=== PATIENT | male | born 1945 | race Caucasian/White ===

== ENCOUNTER 2017-05-31 10:46 | Day surgery (SDC) | payer MEDICARE ==
[2017-05-28 09:24] VITALS: BMI 26.0
[~2017-05-31 10:46] MED LIST: LACTATED RINGERS 1,000 ML IV SCH; LIDOCAINE 1% 20 ML VIAL (10MG/ML) FOR IV START INTRADERMA PRN
[2017-05-31 11:13] VITALS: TEMP 97
[2017-05-31] MEDS ORDERED: PROPOFOL 10 MG/ML 20 ML VIAL IV ONE (12:20)
[2017-05-31] MEDS ORDERED: LIDOCAINE 1% INJ 10MG/ML (20 ML MDV) ONE (12:20)
[2017-05-31 12:50] VITALS: RESP 18
--- NOTE | 2017-05-31 12:52 | P.PCN ---
Date of Procedure: 05/31/17 Procedure(s) Performed: Procedure: Total colonoscopy and polypectomy. Preoperative diagnosis: Screening for neoplasia. Postoperative diagnosis: 1. Diverticulosis with no evidence of acute diverticulitis or strictures. 2. Small hepatic flexure polyp snared but no large polyps or cancer. Preparation: HalfLytely prep. Sedation: Was provided by anesthesia. Brief clinical history: The patient is a 71-year-old male who is scheduled for this evaluation for screening for neoplasia. He had a prior exam 10-12 years ago. He has no abdominal complaints, bleeding or anemia. Procedure: With the patient on his left lateral decubitus position and after informed consent and adequate sedation, the perianal area was inspected and it did not show any fissures or fistulas. There were no masses felt on digital rectal examination. The Olympus CFQ 160L video colonoscope was then inserted in the rectum in the usual fashion and advanced to the cecum. There were several diverticular orifices seen scattered along the length of the bowel wall with no evidence of acute diverticulitis or strictures. A small polyp was seen around the hepatic flexure and that was snared and retrieved by suction, but there were no large polyps or cancer. I retroflexed the endoscope in the rectum before the endoscope was withdrawn. The patient tolerated the procedure well. Plan: The patient was reassured. Discussed dietary measures. He will follow up with you as planned and I recommended repeat exam in 5 years.
[2017-05-31 13:25] VITALS: BP 120/78; PULSE 57
== END 2017-05-31 13:36 | disposition home or self-care (01) ==
LOC: ORWHC2ENDO 10:46
DX: Z12.11 Encounter for screening for malignant neoplasm of colon (principal); K63.5 Polyp of colon; K57.30 Diverticulosis of large intestine without perforation or abscess without bleeding; I10 Essential (primary) hypertension; E78.5 Hyperlipidemia, unspecified; I25.10 Atherosclerotic heart disease of native coronary artery without angina pectoris; N40.0 Benign prostatic hyperplasia without lower urinary tract symptoms; C61 Malignant neoplasm of prostate; Z79.82 Long term (current) use of aspirin; Z79.899 Other long term (current) drug therapy; Z95.1 Presence of aortocoronary bypass graft; Z95.0 Presence of cardiac pacemaker; Z95.2 Presence of prosthetic heart valve
CPT/HCPCS: 88305; 45385; J2001; J2704

== ENCOUNTER → 2017-12-21 | Outpatient (CLI) | payer MEDICARE ==
[2017-12-21 17:37] LABS: HCT 46.5 % (39.0-53.0); HGB 15.1 gm/dL (13.0-17.5); MCH 30.4 pg (25.0-35.0); MCHC 32.5 g/dL (31.0-37.0); MCV 93.3 fL (80.0-100.0); Mean Platelet Volume 7.6; Platelet Count 140 k/uL (150-450); RBC 4.98 m/uL (4.30-5.90); WBC 6.4 k/uL (3.8-10.6)
[2017-12-21 18:07] LABS: Potassium 4.3 mmol/L (3.5-5.1)
== END | disposition home or self-care (01) ==
LOC: LABPAT 17:08
PROVIDERS: ATTEND Internal Medicine Interventional Cardiology
DX: Z01.812 Encounter for preprocedural laboratory examination (principal); I25.810 Atherosclerosis of coronary artery bypass graft(s) without angina pectoris; I48.1 Persistent atrial fibrillation
CPT/HCPCS: 36415; 80051; 82565; 84520; 85027

== ENCOUNTER 2017-12-30 06:01 | Day surgery (SDC) | payer MEDICARE ==
[2017-12-24 10:29] VITALS: BMI 27.1
[2017-12-30] MEDS ORDERED: SODIUM CHLORIDE 0.9% 1,000 ML IV SCH ×2 (06:10→08:15)
[2017-12-30] MEDS ORDERED: LACTATED RINGERS 1,000 ML IV SCH (06:10)
[2017-12-30] MEDS ORDERED: SODIUM CHLORIDE 0.9% 500 ML IV ONE (07:04)
[2017-12-30] MEDS ORDERED: PROPOFOL 10 MG/ML 20 ML VIAL IV ONE (07:27)
[2017-12-30] MEDS ORDERED: LIDOCAINE 1% INJ 10MG/ML (20 ML MDV) ONE (07:27)
[2017-12-30] MEDS ORDERED: MIDAZOLAM 2 MG/2 ML VIAL ONE (07:27)
[2017-12-30] MEDS: BENZOCAINE SPRAY 1 CAN MUCOUS MEM ONE ×2 (07:43→07:54)
[2017-12-30] MEDS ORDERED: DOCUSATE 100 MG CAP PO PRN (08:14)
--- NOTE | 2017-12-30 08:36 | CE ---
CARDIAC ELECTROPHYSIOLOGY REPORT CARDIOVERSION PROCEDURE NOTE. INDICATION: Atrial fibrillation. PROCEDURE: After explaining the procedure to the patient as well as risks and the complications, his blood pressure, heart rate, O2 saturation were monitored. After obtaining sedated state and performing transesophageal echocardiogram, a synchronized biphasic cardioversion using 200 joules was performed with druze of normal sinus rhythm. There was no immediate complication. ESTEFANY / MADDYN: [id number] /
[2017-12-30 08:39] VITALS: TEMP 97
[2017-12-30 08:40] VITALS: RESP 16
[2017-12-30] MEDS ORDERED: APIXABAN 5 MG TAB PO ONE (08:45)
--- NOTE | 2017-12-30 08:51 | ECHOT ---
TRANSESOPHAGEAL ECHOCARDIOGRAM INDICATION: Evaluation of left atrial appendage. PROCEDURE: After explaining the procedure to the patient, its risks and the complications, his blood pressure, heart rate, O2 saturation was monitored. The throat was sprayed with Cetacaine. He received sedation per anesthesia department. The probe was introduced in the esophagus without difficulties. Images were obtained. Following that, the probe was removed. There was no immediate complication. FINDINGS: Left atrial size is dilated. Spontaneous contrast was noted. Left atrial appendage is normal. Left ventricular size is normal. The ejection fraction 45% to 50%. The aortic valve is a bioprosthetic valve with normal appearance. The mitral valve revealed mitral annuloplasty. The tricuspid valve is normal. Pacemaker wire was noted in the right atrium and right ventricle. Descending thoracic aorta appears to be normal. Contrast bubble study revealed no evidence of shunting across the interatrial septum. Doppler pulse wave and color Doppler obtained and revealed a mild mitral and aortic regurgitation as well as mild tricuspid regurgitation. There was no shunting by color Doppler study. CONCLUSION: 1. Dilated left atrium with spontaneous contrast and normal appearance of left atrial appendage. 2. Normal left ventricular size with mild impairment of left ventricular systolic function. 3. Bioprosthetic aortic valve with mild aortic regurgitation. 4. Mitral annuloplasty with mild mitral regurgitation. 5. Mild tricuspid regurgitation. 6. A wire was noted in the right ventricle. 7. Normal appearance of the descending thoracic aorta. MMODL / IJN: [id number] /
[2017-12-30] MEDS ORDERED: CARVEDILOL 6.25 MG TAB PO SCH (09:00)
[2017-12-30] MEDS ORDERED: CHOLECALCIFEROL 1,000 UNIT TAB PO SCH (09:00)
[2017-12-30] MEDS ORDERED: NON-FORMULARY DRUG (Losartan Potassium [Cozaar] 100 MG) PO SCH (09:00)
[2017-12-30] MEDS ORDERED: FINASTERIDE 5 MG TAB PO SCH (09:00)
[2017-12-30] MEDS ORDERED: NON-FORMULARY DRUG (Omeprazole [Omeprazole] 20 MG) PO SCH (09:00)
[2017-12-30] MEDS ORDERED: APIXABAN 5 MG TAB PO SCH (09:00)
[2017-12-30 10:08] VITALS: BP 113/69; PULSE 64
[2017-12-30] MEDS ORDERED: TERAZOSIN HCL 10 MG PO SCH (21:00)
[2017-12-30] MEDS ORDERED: ATORVASTATIN 40 MG TAB PO SCH (21:00)
== END 2017-12-30 09:45 | disposition home or self-care (01) ==
LOC: CATHCVL 06:01
PROVIDERS: ATTEND Internal Medicine Interventional Cardiology
DX: I48.1 Persistent atrial fibrillation (principal); I08.3 Combined rheumatic disorders of mitral, aortic and tricuspid valves; R94.31 Abnormal electrocardiogram [ECG] [EKG]; E78.2 Mixed hyperlipidemia; I42.9 Cardiomyopathy, unspecified; I10 Essential (primary) hypertension; Z95.2 Presence of prosthetic heart valve; Z95.1 Presence of aortocoronary bypass graft; Z95.0 Presence of cardiac pacemaker; Z79.01 Long term (current) use of anticoagulants; Z79.899 Other long term (current) drug therapy
CPT/HCPCS: 93312; 93320; 93325; 92960; J2250; J2001; J2704; 74176

== ENCOUNTER → 2018-08-05 | Outpatient (CLI) | payer MEDICARE ==
--- NOTE | 2018-08-05 21:06 | US ---
EXAMINATION TYPE: US carotid duplex BILAT DATE OF EXAM: 08/05/2018 COMPARISON: NONE CLINICAL HISTORY: R55 Pre Syncope. EXAM MEASUREMENTS: RIGHT: Peak Systolic Velocity (PSV) cm/sec ----- Right CCA: 66.9 ----- Right ICA: 84.4 ----- Right ECA: 75.6 ICA/CCA ratio: 1.3 RIGHT: End Diastole cm/sec ----- Right CCA: 18.9 ----- Right ICA: 26.0 ----- Right ECA: 11.7 LEFT: Peak Systolic Velocity (PSV) cm/sec ----- Left CCA: 69.5 ----- Left ICA: 81.7 ----- Left ECA: 72.1 ICA/CCA ratio: 1.2 LEFT: End Diastole cm/sec ----- Left CCA: 17.1 ----- Left ICA: 36.3 ----- Left ECA: 11.0 VERTEBRALS (direction of flow): Right Vertebral: Antegrade Left Vertebral: Antegrade Rhythm: Normal No significant stenosis seen. Mild to moderate bilateral plaque. No elevated velocities. IMPRESSION: 1. Mild to moderate plaque bilaterally with no significant hemodynamic stenosis. Criteria for Assigning % of Stenosis / Diameter reduction (Estimation based on the indirect measurements of the internal carotid artery velocities (ICA PSV). 1. Normal (no stenosis)=ICA PSV < 125 cm/s: ratio < 2.0: ICA EDV<40 cm/s. 2. Less than 50% stenosis=ICA PSV < 125 cm/s: ratio < 2.0: ICA EDV<40 cm/s. 3. 50 to 69% stenosis=ICA PSV of 125 to 230 cm/s: ration 2.0 ? 4.0: ICA EDV 40-100 cm/s. 4. Greater than 70% stenosis to near occlusion= ICA PSV > 230 cm/s: ratio > 4.0: ICA EDV > 100 cm/s. 5. Near occlusion= ICA PSV velocities may be low or undetectable: variable ratio and ICA EDV. 6. Total occlusion=unable to detect flow.
--- NOTE | 2018-08-06 17:33 | CT ---
EXAMINATION TYPE: CT brain wo con DATE OF EXAM: 08/05/2018 COMPARISON: None HISTORY: Dizziness x [address] DLP: 1245 mGycm Automated exposure control for dose reduction was used. FINDINGS: There is hypodensity in the left temporal lobe consistent with old infarct and encephalomalacia. Ther e is left temporal craniotomy defect. There is no mass effect nor midline shift. There is no sign of intracranial hemorrhage. There is cerebral cortical atrophy. 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 PREVIOUS SURGERY. NO ACUTE INTRACRANIAL ABNORMALITY.
== END | disposition home or self-care (01) ==
LOC: RADCTMAIN 15:24
PROVIDERS: ATTEND Psychiatry & Neurology Neurology
DX: I65.23 Occlusion and stenosis of bilateral carotid arteries (principal); R55 Syncope and collapse; Z98.890 Other specified postprocedural states
CPT/HCPCS: 70450; 93880

== ENCOUNTER 2018-10-06 09:26 | Day surgery (SDC) | payer MEDICARE ==
[2018-10-03 11:06] VITALS: BMI 27.1
[2018-10-06] MEDS ORDERED: SODIUM CHLORIDE 0.9% 1,000 ML IV SCH (09:53)
[2018-10-06 10:18] VITALS: RESP 16; TEMP 98.1
[2018-10-06 12:32] VITALS: BP 136/74; PULSE 72
--- NOTE | 2018-10-06 13:19 | P.PCN ---
Preoperative Diagnosis: Diagnosis Loss of consciousness Twelve-lead ECG shows atrial fibrillation with ventricular pacing, heart rate 51 beats a minute Tilt table test per protocol Baseline blood pressure 170-186 mm of mercury systolic and diastolics in the 80s Patient was tilted upright at an angle of 70 per protocol there was a gradual progressive decline in blood pressure without any significant change in heart rate. The lowest blood pressure recorded was 136/74 mmHg When he was laid supine once again his blood pressure increased back 260/77 mmHg Impression Twelve-lead ECG shows atrial fibrillation with ventricular paced beats Orthostatic hypotension syndrome with a gradual decline in blood pressure with upright position Supine hypertension
== END 2018-10-06 12:44 | disposition home or self-care (01) ==
LOC: CATHEP 09:26
PROVIDERS: ATTEND Internal Medicine Clinical Cardiac Electrophysiology
DX: I95.1 Orthostatic hypotension (principal); I48.91 Unspecified atrial fibrillation; I10 Essential (primary) hypertension
CPT/HCPCS: 93660

== ENCOUNTER → 2018-10-28 | Outpatient (CLI) | payer MEDICARE ==
--- NOTE | 2018-10-28 18:34 | CT ---
EXAMINATION TYPE: CT brain w con DATE OF EXAM: 10/28/2018 COMPARISON: 08/05/2018 HISTORY: dizziness X [address] DLP: 1144.7 mGycm Automated exposure control for dose reduction was used. CONTRAST: CT scan of the head is performed with IV Contrast, patient injected with 50cc mL of Isovue 370. FINDINGS: There is a mild generalized degenerative change. Area of encephalomalacia involving the left temporal lobe compatible with remote ischemia. No acute hemorrhage. No enhancing mass. Postsurgical change compatible with previous craniotomy. Area s of low attenuation within the white matter are nonspecific but most typical remote ischemic punctat e area of low attenuation left basal ganglia compatible with remote lacunar infarct. IMPRESSION: Degenerative and remote ischemic change with no acute process.
--- NOTE | 2018-10-28 18:55 | CT ---
EXAMINATION TYPE: CT angio head neck DATE OF EXAM: 10/28/2018 HISTORY: dizziness X 4 years COMPARISON: CT DLP: 387.3 mGycm. Automated Exposure Control for Dose Reduction was Utilized. TECHNIQUE: CTA scan of the neck is performed with IV Contrast, patient injected with 50cc mL of Isov ue 370, axial images are obtained, coronal and sagittal reformatted images are reviewed. Three-D joseph nstructed images are created on an independent workstation and reviewed. FINDINGS: Right carotid artery: Right carotid artery is patent with mild atherosclerotic changes invo lving the carotid bulb and proximal right ICA. No significant stenosis. Left carotid artery: There is mild atherosclerotic change involving the left carotid bulb and proxima l left ICA. No significant stenosis. There is atherosclerotic change of the aorta. Origin of the great vessels appear to be patent. There is mild atherosclerotic change involving proximal subclavian artery and origin of the left common car otid artery. Visualized portions of the subclavian arteries are patent. Biapical pleural thickening noted. Punctate 2 mm apical nodules involving the right upper lobe and in traparenchymal 2 mm nodules involving the left upper lobe are too small to characterize. Hypertrophic and degenerative changes of vertebral column. Mild atherosclerotic change involving the origin of the left external carotid artery. Sternotomy wires. Cardiac device is noted. The vertebrobasilar system appears patent. Visualized portions of the carotid system including the anterior cerebral middle cerebral arteries ar e patent. There is encephalomalacia involving the left temporal lobe suggestive of previous remote is chemia. No sizable aneurysm or vascular malformation. IMPRESSION: 1. No significant hemodynamic stenosis involving the carotid bifurcations. 2. No evidence of sizable aneurysm. 3. Remote infarct involving the left temporal lobe. 4. Biapical sub-5 mm pulmonary nodules too small to characterize could be followed up in 6 months to confirm stability.
== END | disposition home or self-care (01) ==
LOC: RADCTMAIN 15:17
PROVIDERS: ATTEND Otolaryngology
DX: I63.9 Cerebral infarction, unspecified (principal); G31.9 Degenerative disease of nervous system, unspecified
CPT/HCPCS: 82565; 84520; 70496; 70460; 70498; 36415; Q9967

== ENCOUNTER 2018-12-01 05:52 | Day surgery (SDC) | payer MEDICARE ==
[2018-11-25 08:47] VITALS: BMI 27.1
[2018-12-01] MEDS ORDERED: SODIUM CHLORIDE 0.9% 1,000 ML IV SCH ×2 (06:16→07:45)
[2018-12-01 06:32] VITALS: TEMP 97.9
[2018-12-01] MEDS ORDERED: SODIUM CHLORIDE 0.9% 1,000 ML IV ONE (06:32)
[2018-12-01] MEDS ORDERED: LIDOCAINE 1% INJ 10MG/ML (20 ML MDV) ONE (07:21)
[2018-12-01] MEDS ORDERED: PROPOFOL 10 MG/ML 20 ML VIAL IV ONE (07:21)
--- NOTE | 2018-12-01 08:42 | ECHOT ---
TRANSESOPHAGEAL ECHOCARDIOGRAM INDICATION: Evaluation left atrial appendage. PROCEDURE: After explaining the procedure to the patient, its' risks and complications after obtaining sedated state by the anesthesia department, the probe was introduced into the esophagus without difficulties. Images were obtained. Following that, the probe was removed. There was no immediate complication. FINDINGS: The left atrial size is dilated. Spontaneous contrast was noted. The left atrial appendage revealed an echogenic area suggestive of thrombus. The left ventricular size and systolic function normal. The aortic valve is a bioprosthetic valve with normal appearance. Mitral valve revealed mitral valve bioprosthetic with normal movement of the leaflets. The tricuspid valve is normal. Descending thoracic aorta appears normal. Contrast bubble study revealed no shunting across the interatrial septum. No pericardial effusion was noted. Doppler pulse wave were obtained, revealed mild mitral and aortic regurgitation. There was mild to moderate tricuspid regurgitation with mild pulmonary hypertension. CONCLUSION: 1. Normal left ventricular size and systolic function. 2. Dilated left atrium with spontaneous contrast and suggestion of left atrial appendage thrombus. 3. Bioprosthetic aortic valve with mild aortic regurgitation. 4. Bioprosthetic mitral valve with mild mitral regurgitation. 5. Mild to moderate tricuspid regurgitation with mild pulmonary hypertension. 6. No shunting across the interatrial septum. MMODL / IJN: [id number] /
[2018-12-01] MEDS ORDERED: FINASTERIDE 5 MG TAB PO SCH (09:00)
[2018-12-01] MEDS ORDERED: NON FORMULARY DRUG (Losartan Potassium [Cozaar] 100 MG) PO SCH (09:00)
[2018-12-01] MEDS ORDERED: CARVEDILOL 6.25 MG TAB PO SCH (09:00)
[2018-12-01] MEDS ORDERED: APIXABAN 5 MG TAB PO SCH (09:00)
[2018-12-01] MEDS ORDERED: AMIODARONE 200 MG TAB PO SCH (09:00)
[2018-12-01 09:15] VITALS: PULSE 62
[2018-12-01 09:16] VITALS: BP 131/70; RESP 20
[2018-12-01] MEDS ORDERED: TERAZOSIN HCL 10 MG PO SCH (21:00)
[2018-12-01] MEDS ORDERED: ATORVASTATIN 40 MG TAB PO SCH (21:00)
--- NOTE | 2018-12-28 13:01 | CDI ---
Outpatient Documentation Clarification Form Date: 12/28/18 CDS/Sales And Distribution Clerk Name: Maritza Hughes Phone: If any questions, call Marisol Carlton Bathhouse Attendant at [phone] Patient Name: Robby Hodgson Admit Date: 12/01/18 Discharge Date: 12/01/18 ATTENTION: The [facility] Coding Staff appreciate your assistance in clarifying documentation. Please respond to the clarification below the line at the bottom and electronically sign. The [facility] Coding staff will review the response and follow-up if needed. Please note: Queries are made part of the Legal Health Record. If you have any questions, please contact the Bathhouse Attendant. Dear Dr. Bynum, It appears that your MINAL dictation does not include documentation that the following part of the study was done. Doppler Echocardiography Color Flow velocity mapping. If it was done, please document that it was done in addendum to your MINAL report or document details/results that indicate that it was done on this form below the line. Thank you for your kind consideration. [facility]
--- NOTE | 2018-12-30 10:16 | CDI ---
Outpatient Documentation Clarification Form Date: 12/30/18 CDS/Shop Clerk Name: Maritza Hughes Phone: If any questions, call Marisol Carlton Gas Producer at [phone] Patient Name: Robby Hodgson Admit Date: 12/01/18 Discharge Date: 12/01/18 ATTENTION: The [facility] Coding Staff appreciate your assistance in clarifying documentation. Please respond to the clarification below the line at the bottom and electronically sign. The [facility] Coding staff will review the response and follow-up if needed. Please note: Queries are made part of the Legal Health Record. If you have any questions, please contact the Gas Producer. Dear Dr. Bynum, It appears that your MINAL dictation does not include documentation that the following part of the study was done. Doppler Echocardiography Color Flow velocity mapping. If it was done, please document that it was done in addendum to your MINAL report or document details/results that indicate that it was done on this form below the line. Thank you for your kind consideration _ MTDD
== END 2018-12-01 09:20 | disposition home or self-care (01) ==
LOC: CATHCVL 05:52
PROVIDERS: ATTEND Internal Medicine Interventional Cardiology
DX: I48.1 Persistent atrial fibrillation (principal); I27.20 Pulmonary hypertension, unspecified; I08.3 Combined rheumatic disorders of mitral, aortic and tricuspid valves; Z95.2 Presence of prosthetic heart valve; E78.2 Mixed hyperlipidemia; I13.10 Hypertensive heart and chronic kidney disease without heart failure, with stage 1 through stage 4 chronic kidney disease, or unspecified chronic kidney disease; N18.9 Chronic kidney disease, unspecified; Z95.1 Presence of aortocoronary bypass graft; Z95.0 Presence of cardiac pacemaker; Z79.01 Long term (current) use of anticoagulants; Z79.899 Other long term (current) drug therapy
CPT/HCPCS: 93312; 93320; J2001; J2704; 92960; 93325

== ENCOUNTER → 2019-01-06 | Day surgery (SDC) | payer MEDICARE ==
[2019-01-02 15:18] VITALS: BMI 27.6
[~2019-01-06] MED LIST changes: +AMIODARONE 200 MG TAB PO SCH; +APIXABAN 5 MG TAB PO SCH; +ATORVASTATIN 40 MG TAB PO SCH; +BENZOCAINE SPRAY 1 CAN TOPICAL ONE; +CARVEDILOL 6.25 MG TAB PO SCH; +FINASTERIDE 5 MG TAB PO SCH; -LIDOCAINE 1% 20 ML VIAL (10MG/ML) FOR IV START INTRADERMA PRN; +NON FORMULARY DRUG (Losartan Potassium [Cozaar] 100 MG) PO SCH; +PROPOFOL 10 MG/ML 20 ML VIAL IV ONE; +SODIUM CHLORIDE 0.9% 1,000 ML IV SCH; +TERAZOSIN HCL 10 MG PO SCH
[2019-01-06 06:50] VITALS: TEMP 98
[2019-01-06 07:57] VITALS: RESP 16
--- NOTE | 2019-01-06 08:03 | ECHOT ---
TRANSESOPHAGEAL ECHOCARDIOGRAM TRANSESOPHAGEAL ECHOCARDIOGRAM: INDICATION: Evaluation of left atrial appendage. PROCEDURE: After explaining the procedure to the patient, its risks and the complications, his blood pressure, heart rate, O2 saturation was monitored. The throat was sprayed with Cetacaine, he received sedation per Anesthesia Department. The probe was introduced in the esophagus without difficulty, images were obtained. Following that, the probe was removed. There was no immediate complication. FINDINGS: Left atrial size is moderately dilated. There is evidence of spontaneous contrast. Left atrial appendage is normal. Left ventricular size and systolic function normal. The aortic valve is a bioprosthetic aortic valve with normal appearance. The mitral valve is a bioprosthetic mitral valve with normal appearance. Descending thoracic aorta appears to be normal. The tricuspid valve is normal. No pericardial effusion was noted. Contrast bubble study revealed no evidence of shunting across the interatrial septum. Doppler pulse wave and color Doppler obtained and revealed mild mitral and aortic regurgitation with mild to moderate tricuspid regurgitation and mild pulmonary hypertension. There was no shunting by color Doppler study. CONCLUSION: 1. Dilated left atrium with normal appearance of left atrial appendage with spontaneous contrast. 2. Normal left ventricular size systolic function. 3. Bioprosthetic aortic valve with mild aortic regurgitation. 4. Bioprosthetic mitral valve with mild mitral regurgitation. 5. Mild to moderate tricuspid regurgitation. 6. Normal appearance of the descending thoracic aorta. 7. No shunting across the interatrial septum. MMODL / IJN: [id number] /
--- NOTE | 2019-01-06 08:09 | CE ---
CARDIAC ELECTROPHYSIOLOGY REPORT CARDIOVERSION PROCEDURE NOTE: INDICATION: Atrial fibrillation. PROCEDURE: After explaining the procedure to the patient, its risks and the complications, after obtaining sedated state per Anesthesia Department and performing transesophageal echocardiogram, a synchronized biphasic cardioversion using 200 joules was performed with jewish of normal sinus rhythm. There was no immediate complication. ESTEFANY / VARUN: [id number] /
[2019-01-06 09:32] VITALS: BP 156/77; PULSE 60
== END | disposition home or self-care (01) ==
LOC: CATHCVL 06:26
PROVIDERS: ATTEND Internal Medicine Interventional Cardiology
DX: I08.3 Combined rheumatic disorders of mitral, aortic and tricuspid valves (principal); I48.1 Persistent atrial fibrillation; I10 Essential (primary) hypertension; I42.9 Cardiomyopathy, unspecified; E78.2 Mixed hyperlipidemia; C61 Malignant neoplasm of prostate; K21.9 Gastro-esophageal reflux disease without esophagitis; Z95.1 Presence of aortocoronary bypass graft; Z79.01 Long term (current) use of anticoagulants; Z79.02 Long term (current) use of antithrombotics/antiplatelets; Z79.899 Other long term (current) drug therapy; Z95.0 Presence of cardiac pacemaker; Z95.2 Presence of prosthetic heart valve; Z87.891 Personal history of nicotine dependence
CPT/HCPCS: 93312; 93320; 93325; 92960; J2704

== ENCOUNTER → 2019-09-05 | Outpatient (CLI) | payer MEDICARE ==
--- NOTE | 2019-09-05 14:40 | CT ---
EXAMINATION TYPE: CT abdomen pelvis w con DATE OF EXAM: 09/05/2019 COMPARISON: 12/30/2017 HISTORY: Gross hematuria CT DLP: 1162.00 mGycm Automated exposure control for dose reduction was used. CONTRAST: CT scan of the abdomen pelvis is performed with IV Contrast, patient injected with 100 ml mL of Isovu e 300. FINDINGS- LUNG BASES-the heart is enlarged. Motion artifact limits assessment of the lung bases. LIVER/GB-tiny hypodensities measuring less than 5 mm in the liver too small to characterize. No galls tones.. PANCREAS- No gross abnormality is seen. SPLEEN- No gross abnormality is seen. ADRENALS-8 mm left adrenal nodules too small to characterize but similar in appearance to the prior C T scan 2018 therefore likely in the basis of an adenoma.. KIDNEYS/BLADDER-left kidney is markedly atrophic. There are 2 lower pole calcifications the larger on e measuring 1 cm. Extrarenal pelvis noted. There is a nonobstructing mid to lower pole 2 mm right yakelin al calculus. No suspicious renal mass. Tiny sub-5 mm hypodensities in the right kidney too small to c haracterize. 2. Stranding is nonspecific could be correlated with urinary analysis. BOWEL-small hiatal hernia noted. Bowel gas pattern nonspecific. Mild thickening of the wall the gastr ic antrum is nonspecific. Changes of diverticulosis noted. Portions of the sigmoid colon are decompre ssed and limited in assessment.. LYMPH NODES- No greater than 1cm abdominal or pelvic lymph nodes areappreciated. OSSEOUS STRUCTURES- No significant abnormality is seen. OTHER- prostate gland is markedly enlarged. Atherosclerotic change aorta which appears to be of norm al caliber. Cardiac lead incidentally noted. Bladder is homogeneous in attenuation IMPRESSION- 1. Marked atrophy of the left kidney with nonobstructing bilateral renal calculi as discussed above. There is faint perinephric stranding bilaterally which can be associated with infectious etiology cor relate with urine analysis. 2. Prostatic hypertrophy
== END | disposition home or self-care (01) ==
LOC: RADCTMAIN 11:40
PROVIDERS: ATTEND Family Medicine
DX: N26.1 Atrophy of kidney (terminal) (principal); N20.0 Calculus of kidney; N40.0 Benign prostatic hyperplasia without lower urinary tract symptoms
CPT/HCPCS: 82565; 84520; 74177; 36415; Q9967

== ENCOUNTER 2019-11-06 06:20 | Day surgery (SDC) | payer MEDICARE ==
[~2019-11-06 06:20] MED LIST changes: -AMIODARONE 200 MG TAB PO SCH; -APIXABAN 5 MG TAB PO SCH; -ATORVASTATIN 40 MG TAB PO SCH; -BENZOCAINE SPRAY 1 CAN TOPICAL ONE; -CARVEDILOL 6.25 MG TAB PO SCH; +DEXAMETHASONE SOD PHOSPHATE 10 MG/ML 1 ML VIAL IV ONE; -FINASTERIDE 5 MG TAB PO SCH; +HYDROmorphone 0.5 MG/0.5 ML SYRINGE IVP PRN; -LACTATED RINGERS 1,000 ML IV SCH; +LIDOCAINE 1% (10MG/ML) FOR IV START INTRADERMA PRN; +MIDAZOLAM 2 MG/2 ML VIAL IV PRN; -NON FORMULARY DRUG (Losartan Potassium [Cozaar] 100 MG) PO SCH; -PROPOFOL 10 MG/ML 20 ML VIAL IV ONE; -SODIUM CHLORIDE 0.9% 1,000 ML IV SCH; -TERAZOSIN HCL 10 MG PO SCH
[2019-11-06 07:07] LABS: Basophils % (A) 1 %; Eosinophils # (A) 0.3 k/uL (0-0.7); Eosinophils % (A) 7 %; HCT 44.6 % (39.0-53.0); HGB 14.5 gm/dL (13.0-17.5); Lymphocytes # (A) 0.7 k/uL (1.0-4.8); Lymphocytes % (A) 15 %; MCH 29.7 pg (25.0-35.0); MCHC 32.6 g/dL (31.0-37.0); MCV 91.1 fL (80.0-100.0); Mean Platelet Volume 8.7; Monocytes # (A) 0.4 k/uL (0-1.0); Monocytes % (A) 8 %; Neutrophils # (A) 3.2 k/uL (1.3-7.7); Neutrophils % (A) 68 %; Platelet Count 134 k/uL (150-450); RBC 4.89 m/uL (4.30-5.90); RDW 14.3 % (11.5-15.5); WBC 4.6 k/uL (3.8-10.6)
[2019-11-06 07:15] LABS: Calcium 9.8 mg/dL (8.4-10.2); Potassium 4.1 mmol/L (3.5-5.1)
[2019-11-06] MEDS ORDERED: LIDOCAINE 1% INJ 10MG/ML (20 ML MDV) ONE ×2 (07:53→07:54)
[2019-11-06] MEDS ORDERED: HEPARIN SODIUM,PORCINE 10,000 UNIT/ML 1 ML VIAL ONE (07:54)
[2019-11-06] MEDS ORDERED: PROPOFOL 10 MG/ML 20 ML VIAL IV ONE (07:54)
[2019-11-06] MEDS ORDERED: PHENYLEPHRINE-0.9% NACL SYG 1 MG/10 ML SYRINGE ONE (07:54)
[2019-11-06] MEDS ORDERED: MIDAZOLAM 2 MG/2 ML VIAL ONE (07:54)
[2019-11-06] MEDS ORDERED: SUCCINYLCHOLINE CHLORIDE VIAL 200 MG/10 ML VIAL IV ONE (07:54)
[2019-11-06] MEDS: SODIUM CHLORIDE 0.9% 1,000 ML IV SCH (07:54)
[2019-11-06] MEDS ORDERED: FUROSEMIDE 10 MG/ML 2 ML VIAL ONE (07:54)
[2019-11-06] MEDS ORDERED: PROTAMINE SULFATE 10 MG/ML 5 ML VIAL IV ONE (07:54)
[2019-11-06] MEDS ORDERED: fentaNYL (PF) 50 MCG/ML 2 ML AMP ONE (07:54)
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
[2019-11-06] MEDS ORDERED: IOPAMIDOL-370 50ML BTL INJ ONE (08:25)
[2019-11-06] MEDS ORDERED: LIDOCAINE 1%-EPI 1:100,000 20 ML VIAL SQ ONE (09:26)
[2019-11-06] MEDS ORDERED: HEPARIN SODIUM (1,000 UNIT/ML) 1,000 UNIT in SODIUM CHLORIDE 0.9% 1,000 ML IRRIGATION ONE (09:56)
[2019-11-06] MEDS ORDERED: HEPARIN SOD,PORK IN 0.45% NACL 25,000 UNIT in 0.45% NACL 1 250ML.BAG IV ONE (09:56)
[2019-11-06] MEDS ORDERED: IOPAMIDOL-370 100ML BTL INJ ONE (12:41)
--- NOTE | 2019-11-06 13:04 | P.PCN ---
Preoperative Diagnosis: Diagnosis Atrial fibrillation, symptomatic, refractory to therapy, persistent Failed amiodarone and electrical cardioversions 100% RV paced Result No left atrial appendage mass seen on intracardiac echo, within the left atrial appendage stump Successful pulmonary vein isolation of all veins using cryo-ablation Complete entrance block in all 4 veins confirmed No evidence for phrenic nerve injury Patient converted to atrial flutter following PVI Successful atrial flutter ablation Esophageal deflection YES Electrical cardioversion with a synchronized shock across the chest NO LV function appeared normal on intracardiac echo Procedure details Patient was brought to the EP lab in a fasting state. Written informed consent was obtained prior to the procedure. Procedure performed under general anesthesia Medtronic device was interrogated and reprogrammed to VVI 50 beats a minute At the end of the procedure lead impedances were stable and the device was reprogrammed to DDDR 50 to 1:30 bpm After initial muscle relaxant use, muscle relaxants were not given thereafter in order to assess phrenic nerve during procedure. Patient prepped and draped as per protocol Full cryo-set up with standard preparation of the cryoablation tools done. Femoral Venous access obtained on the right and left groins Venous and arterial Sheaths placed. Diagnostic catheters for the high right atrium, phrenic nerve stimulation and pacing, His bundle, RV and coronary sinus placed Intracardiac echo catheter placed. Long sheath placed in the right atrium Left and right transseptal catheterization performed under intracardiac echo guidance. Intravenous heparin with aCT above 300 Later, catheter positioning and balloon positioning in the left atrium, under intracardiac echo guidance Diagnostic EP study with Coronary sinus pacing and recording Baseline measurements: Sinus cycle length 04/27/2003 milliseconds, paced QRS 163 ms Ventricular paced rhythm Atrial pacing performed from the right atrium and the coronary sinus Transseptal catheterization performed RA pressure 15/8/12 LA pressure 34/12/20, prominent V wave Transseptal catheterization performed with standard sheath. The cryoablation sheath was then placed with an over the wire exchange without any acute complications. All 4 pulmonary veins were isolated in the following sequence: Left superior followed by left inferior followed by right superior followed by right inferior The cryo-ablation balloon was placed at the os of each vein 1.5 mL of IV dye was injected to confirm an occluded vein Goal during cryoablation was to achieve complete occlusion of the pulmonary vein, achieve -30 degrees C at 30 seconds and achieve -40 degrees C at 60 seconds and a time to effect of less than 60-90 seconds, . If not the balloon was repositioned to obtain this result After completion of Cryoblation with durations from 180-240 seconds, entrance block was confirmed with the Attain circular catheter in a roving fashion around the antrum of the pulmonary veins Phrenic nerve pacing was performed from the SVC, right innominate vein area and diaphragm voltage was monitored. Diaphragmatic contractions were also monitored manually for strength of contraction. Parameter goals for each cryo freeze Complete occlusion of the appropriate vein -30 degrees C by 30 seconds -40 degrees C by 60 seconds Minimum between minus 40-55 degrees C Thaw time greater than 10 seconds Balloon visualized by intracardiac echo The esophagus was intubated. Esophageal Temperature monitoring with a CIRCA catheter formed. Esophageal deflection for hypothermia of the esophagus below 30 degrees C Left superior pulmonary vein Complete isolation, entrance block Left inferior pulmonary vein Complete isolation, entrance block Right superior pulmonary vein, during phrenic nerve pacing Complete isolation, entrance block Right inferior pulmonary vein, during phrenic nerve pacing Complete isolation, entrance block At the end of the procedure the Achieve catheter was once again used to check for entrance block Phrenic nerve stimulation was performed to confirm diaphragmatic stimulation the end of the procedure Cine fluoroscopy was performed at the very end of the procedure to confirm movement of both diaphragms with inspiration and expiration After completion of the pulmonary vein isolation patient was in an atrial tachycardia 3-D activation mapping of the left atrium was performed. The tachycardia focus was not in the left atrium The twelve-lead ECG was consistent with atrial flutter 3-D anatomical mapping of the cavo tricuspid right atrium was performed. RF ablation was applied. The tachycardia was terminated to sinus rhythm/sinus bradycardia with complete heart block/ventricular paced rhythm Baseline was interrogated Bidirectional block was proven with differential pacing Widely split potentials were noted across the line At the end of the procedure the patient was extubated Heparin was reversed Venous sheaths were removed and hemostasis assured Procedures performed (PVI and A. fib ablation ) Diagnostic EP study CS pacing and recording Left and right transseptal catheterization 3D mapping Intracardiac echocardiography Pulmonary vein isolation with transseptal and comprehensive EPS, [id number] atrial flutter ablation, ablation of discrete arrhythmia focus, [id number] Periprocedural pacemaker interrogation and reprogramming x2
[2019-11-06] MEDS ORDERED: ACETAMINOPHEN TAB 325 MG TAB PO PRN (13:12)
[2019-11-06] MEDS ORDERED: HYDROcodone/APAP 5-325MG 1 EACH TAB PO PRN (13:12)
--- NOTE | 2019-11-06 13:12 | P.PCN ---
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 This would be quite challenging as the tortuosity of this collateral would not allow torque to be transmitted along the lead being implanted and therefore lead maneuvering within the heart would be extremely difficult. However intracardiac echo showed LV function was close to normal Patient underwent successful termination of atrial fibrillation with VVI He converted to atrial flutter thereafter which is also successfully ablated Sinus rhythm was obtained following ablation Suggest Reduce amiodarone to 100 mg by mouth daily
[2019-11-06] MEDS ORDERED: ACETAMINOPHEN IV (For NPO) 1,000 MG in EMPTY BAG 1 BAG IVPB ONE (14:00)
--- NOTE | 2019-11-06 14:15 | P.PCN ---
Preoperative Diagnosis: Following A. fib ablation the pacemaker was interrogated This is a Medtronic adapter Longevity around 3-1/2 years Pacing impedance in the atrium for 20 ohms Pacing impedance in the ventricle function for ohms Atrial threshold 1 warted 0.4 ms, P waves 5.6 mV line ventricular threshold 1.2 V at 0.4 ms, complete heart block Pacemaker function within normal limits post A. fib ablation
[2019-11-06] MEDS: LACTATED RINGERS 1,000 ML IV SCH (15:02)
--- NOTE | 2019-11-06 16:56 | P.PRLE ---
RE: Robby Hodgson Dear Marlee Mr. Robby Cuenca has very symptomatic atrial fibrillation, persistent and he underwent pulmonary vein isolation/A. fib ablation at this resulted in ter mination of atrial fibrillation and appearance of typical atrial flutter. Subsequently atrial flutter was also successfully ablated to sinus rhythm He does of complete heart block and has a dual-chamber pacemaker There is also question of an upgrade to a biventricular pacing system but intracardiac echo showed fairly preserved LV systolic function. In addition he has an occluded left subclavian vein on the left upper extremity venography. At this time I would simply continue anticoagulation and his current medications and 03 he maintains sinus rhythm on a lower dose of amiodarone of 100 mg by mouth daily. Thank you for entrusting me with the care of the patient Warm regards Sincerely Enio Deluca
[2019-11-06] MEDS: CARVEDILOL 6.25 MG TAB PO SCH (17:35)
[2019-11-06] MEDS: APIXABAN 5 MG TAB PO SCH (20:43)
[2019-11-06] MEDS ORDERED: DOXAZOSIN 4 MG TAB PO SCH (21:00)
[2019-11-06] MEDS ORDERED: ATORVASTATIN 40 MG TAB PO SCH (21:00)
[2019-11-07] MEDS: LACTATED RINGERS 1,000 ML IV SCH (00:45)
[2019-11-07] MEDS: CARVEDILOL 6.25 MG TAB PO SCH (06:50)
[2019-11-07] MEDS ORDERED: PANTOPRAZOLE 40 MG TABLET PO SCH (07:30)
[2019-11-07] MEDS: APIXABAN 5 MG TAB PO SCH (07:56)
[2019-11-07] MEDS: SODIUM CHLORIDE 0.9% 1,000 ML IV SCH (08:25)
[2019-11-07] MEDS ORDERED: LOSARTAN 50 MG TAB PO SCH (09:00)
[2019-11-07] MEDS ORDERED: FINASTERIDE 5 MG TAB PO SCH (09:00)
[2019-11-07 09:37] VITALS: BP 156/84; PULSE 61; RESP 18; TEMP 98
--- NOTE | 2019-11-07 15:36 | P.DS ---
Providers Attending physician: Enio Deluca Primary care physician: [facility] Course: Patient is doing well. His sore throat. No chest discomfort. His ablating in the hallways and his room with no tenderness in the groins no swelling or significant pain No pleuritic chest discomfort He is afebrile 90 have that pulses of the 60s and 70s, blood pressure 156/80. His mercury head and neck examination is normal No JVD Normal heart sounds normal S1 normal S2 Breath sounds are clear rhonchi no crackles Extremities are warm Cause of healed well Impression Persistent symptomatic atrial fibrillation Pulmonary vein dependent atrial fibrillation Patient went into atrial flutter following successful cryoablation of pulmonary veins Source of his A. fib is in and around the right superior pulmonary vein He underwent successful ablation of atrial flutter with bidirectional block Plan Continue current medications directed anticoagulation Follow-up with Dr. Bynum week He may go home today Plan - Discharge Summary Discharge Rx Participant: Yes New Discharge Prescriptions: New Amiodarone [Cordarone] 100 mg PO DAILY #90 tab Discontinued Amiodarone [Cordarone] 200 mg PO DAILY No Action Atorvastatin [Lipitor] 40 mg PO HS Finasteride [Proscar] 5 mg PO DAILY Carvedilol [Coreg] 6.25 mg PO BID Terazosin HCl 10 mg PO HS Losartan Potassium [Cozaar] 100 mg PO DAILY Apixaban [Eliquis] 5 mg PO BID Omeprazole [PriLOSEC] 20 mg PO [facility] Discharge Medication List Atorvastatin [Lipitor] 40 mg PO HS 05/28/17 [History] Carvedilol [Coreg] 6.25 mg PO BID 05/28/17 [History] Finasteride [Proscar] 5 mg PO DAILY 05/28/17 [History] Apixaban [Eliquis] 5 mg PO BID 12/24/17 [History] Losartan Potassium [Cozaar] 100 mg PO DAILY 12/24/17 [History] Terazosin HCl 10 mg PO HS 12/24/17 [History] Omeprazole [PriLOSEC] 20 mg PO AC-BRKT 11/02/19 [History] Amiodarone [Cordarone] 100 mg PO DAILY #90 tab 11/06/19 [Rx] Follow up Appointment(s)/Referral(s): Ralph Bynum MD [STAFF PHYSICIAN] - 11/14/19 8:30 am (Follow up in the office with Dr. Bynum as scheduled for you) Patient Instructions/Handouts: Electrophysiology Study (DC) Activity/Diet/Wound Care/Special Instructions: Post EP study - Ablation instructions 1. Keep access sites dry for 2 days. 2. No heavy lifting or straining for 2 days. 3. Avoid bending the hips repeatedly for 2 days. 4. You may go up and down stairs slowly Call if the following is noted 1. Bleeding, increasing swelling or pain at the access sites. 2. Increasing chest discomfort, especially upon taking a deep breath. 3. Increasing shortness of breath, at rest or with exertion. 4. Undue cough / phlegm 5. Difficulty or pain while swallowing. 6. Pain or change in color in the extremities. 7. Fever, chills, rigors. 8. Increasing headache or neurologic symptoms. 9. Dizziness, fainting, palpitations Discharge Disposition: HOME SELF-CARE
== END 2019-11-07 11:26 | disposition home or self-care (01) ==
LOC: CATHEP 06:20 → 3NCARDOBS 12:33 → CATHEP 11-07 11:26
PROVIDERS: ATTEND Internal Medicine Clinical Cardiac Electrophysiology
DX: I48.19 Other persistent atrial fibrillation (principal); I50.22 Chronic systolic (congestive) heart failure; I42.9 Cardiomyopathy, unspecified; Z95.2 Presence of prosthetic heart valve; I11.0 Hypertensive heart disease with heart failure; R06.02 Shortness of breath; R53.83 Other fatigue; R42 Dizziness and giddiness; Z95.0 Presence of cardiac pacemaker; K21.9 Gastro-esophageal reflux disease without esophagitis; Z85.46 Personal history of malignant neoplasm of prostate; Z87.891 Personal history of nicotine dependence; J02.9 Acute pharyngitis, unspecified; I44.2 Atrioventricular block, complete; I48.92 Unspecified atrial flutter
CPT/HCPCS: 93656; 93662; 93613; 93657; 75820; 85347; 80048; 85025; C1769 ×5; C1894 ×2; C1730 ×2; C1759; C1893; C1733; C1766; C1732; S0138; J2250; J0330; J2720; J1644 ×3; J1940; J0690; J2001; J3010; J0131; J2370; J2704; Q9967 ×2

== ENCOUNTER → 2020-09-30 | Outpatient (CLI) | payer MEDICARE ==
[2020-09-30 12:21] LABS: Basophils % (A) 0 %; Eosinophils # (A) 0.2 k/uL (0-0.7); Eosinophils % (A) 4 %; HCT 43.2 % (39.0-53.0); HGB 14.1 gm/dL (13.0-17.5); Lymphocytes # (A) 0.9 k/uL (1.0-4.8); Lymphocytes % (A) 22 %; MCH 30.6 pg (25.0-35.0); MCHC 32.6 g/dL (31.0-37.0); MCV 93.7 fL (80.0-100.0); Mean Platelet Volume 7.7; Monocytes # (A) 0.3 k/uL (0-1.0); Monocytes % (A) 8 %; Neutrophils # (A) 2.7 k/uL (1.3-7.7); Neutrophils % (A) 64 %; Platelet Count 133 k/uL (150-450); RBC 4.61 m/uL (4.30-5.90); RDW 13.4 % (11.5-15.5); WBC 4.2 k/uL (3.8-10.6)
[2020-09-30 12:46] LABS: Amorphous Sediment,Urine Rare /hpf; RBC,Urine >182 /hpf (0-5); WBC,Urine 26 /hpf (0-5)
[2020-09-30 12:47] LABS: Calcium 9.9 mg/dL (8.4-10.2); Potassium 4.1 mmol/L (3.5-5.1)
[2020-09-30 12:48] LABS: Appearance,Urine Cloudy (Clear)
[2020-09-30 12:49] LABS: Color,Urine Brown
== END | disposition home or self-care (01) ==
LOC: LABPAT 11:06
PROVIDERS: ATTEND Urology
DX: Z01.812 Encounter for preprocedural laboratory examination (principal); N20.0 Calculus of kidney; R31.0 Gross hematuria
CPT/HCPCS: 36415; 80048; 81001; 85025; 87086

== ENCOUNTER 2020-10-03 12:25 | Day surgery (SDC) | payer MEDICARE, OTHER ==
[2020-10-02 11:07] VITALS: BMI 27.1
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
--- NOTE | 2020-10-03 12:57 | XR ---
EXAMINATION TYPE: XR KUB DATE OF EXAM: 10/03/2020 COMPARISON: None INDICATION: Kidney stones TECHNIQUE: Single view abdomen supine position FINDINGS: There is a nonspecific bowel gas pattern. Psoas margins are normal. No organomegaly is present. There are calcifications overlying the left renal bed measuring 1.3-1.2 cm in length. Additional smal ler calcifications are present including a 0.6 cm calcification. IMPRESSION: 1. Left renal stones
[2020-10-03] MEDS ORDERED: ONDANSETRON 4 MG/2 ML VIAL ONE (13:21)
[2020-10-03] MEDS ORDERED: LACTATED RINGERS 1,000 ML IV ONE ×2 (13:25→16:45)
[2020-10-03] MEDS ORDERED: DEXAMETHASONE SOD PHOSPHATE 4 MG/ML 1 ML VIAL IV ONE (13:26)
[2020-10-03] MEDS ORDERED: ONDANSETRON 4 MG/2 ML VIAL IVP ONE (13:26)
[2020-10-03] MEDS ORDERED: MIDAZOLAM 2 MG/2 ML VIAL IVP ONE (15:04)
[2020-10-03] MEDS ORDERED: fentaNYL (PF) 50 MCG/ML 2 ML AMP ONE (15:10)
[2020-10-03] MEDS ORDERED: SUCCINYLCHOLINE CHLORIDE 100 MG/5 ML SYR IV ONE (15:10)
[2020-10-03] MEDS ORDERED: PROPOFOL 10 MG/ML 20 ML VIAL IV ONE (15:10)
[2020-10-03 17:18] VITALS: TEMP 97.5
--- NOTE | 2020-10-03 17:26 | P.OP ---
Date of Procedure: 10/03/20 Preoperative Diagnosis: Left renal calculi Postoperative Diagnosis: Same Procedure(s) Performed: Cystoscopy, left ureteroscopy with Holmium laser lithotripsy and stone basketing, left ureteral stent insertion, fulguration of bleeders Anesthesia: MANJEET Surgeon: Adolph Sharma Estimated Blood Loss (ml): 30 IV fluids (ml): 900 Pathology: other (Calculus fragments, some for chemical analysis) Condition: stable Disposition: PACU Indications for Procedure: The patient is a 75-year-old white male diagnosed with prostate cancer in 2011. His most recent PSA level was 4.0, and he is being managed with watchful waiting. He takes Eliquis for atrial fibrillation and has experienced gross hematuria. Cystoscopy in 2018 showed no intravesical pathology. He has an atrophic left kidney with 2-3 large lower pole calculi, and he now comes for left ureteroscopy with laser lithotripsy to remove these calculi as they are the presumed source of hematuria. Operative Findings: 3 left renal calculi, measuring 6-13 mm in size. Description of Procedure: The patient was taken to the operating room and placed in the dorsolithotomy position, with legs supported in Melvin stirrups. The external genitalia was prepped and draped sterilely. The 30 lens was used to introduce the 21-[place] Islander Virk cystoscopic sheath through the urethra and into the bladder under direct vision. The prostatic urethra showed evidence of lateral lobe enlargement, visually occlusive. The bladder was examined in its entirety. Both ureteral orifices were normal anatomic location and configuration, and clear urine effluxed from both. No tumors or foreign bodies were seen. A 0.038 inch Glidewire was passed through the cystoscope. The ureteral orifice was cannulated, and the Glidewire was advanced up to the renal pelvis. The cystoscope was removed, and an 11/13-[place] Islander ureteral access catheter was passed over the wire, up to the proximal ureter. The flexible ureteroscope was then passed through the ureteral access catheter sheath and advanced under direct vision up to the left renal pelvis. 3 calculi were seen. The 272 micron Holmium laser probe was passed through the ureteroscope, and lithotripsy was performed. All 3 calculi were fragmented. One was less dense than the other 2. Visualization within the renal pelvis was poor. On several locations, I aspirated the cloudy fluid from the renal pelvis to enhance vision. Some of the calculus fragments were removed using a 1.9-Sol[place] Islander nitinol basket. However, visualization was insufficient to complete fragmentation of the calculi. Therefore, a Glidewire was passed through the ureteral access catheter sheath, which was then removed. The Glidewire was backloaded into the cystoscope, which was passed into the bladder. A 28 cm, 6-[place] Islander double-J ureteral stent was placed over the wire. Proper stent positioning was verified fluoroscopically and endoscopically. Some oozing was noted within the prostatic urethra. This was controlled with the Bugbee electrode. The bladder was emptied and the cystoscope removed. The patient tolerated the procedure well and was taken to the recovery room in stable condition. [facility] Report: Procedure Acuity: Elective Stone Size and Location: 3 left renal calculi measuring up to 13 mm Ureteral Dilation: No Ureteral Access Sheath Used: Yes Stone Sent for Analysis: Yes All Stones/Fragments Were Removed with a Basket: No Complications: No Preoperative Antibiotics Given: Yes Stent Placed: Yes If Stent Placed, Was String Left Attached: No If Stent Placed, When is it to be Removed: 2-3 weeks Discharge Medications: Tamsulosin
[2020-10-03 17:53] VITALS: BP 178/87; PULSE 61; RESP 18
--- NOTE | 2020-10-03 23:01 | FL ---
Fluoroscopy INDICATION: Pain FINDINGS: Fluoroscopy time: 15 seconds. Images obtained: 4. IMPRESSIONS: 1. Documentation of fluoroscopy.
== END 2020-10-03 18:31 | disposition home or self-care (01) ==
LOC: OR 12:25
PROVIDERS: ATTEND Urology
DX: N20.0 Calculus of kidney (principal); I48.91 Unspecified atrial fibrillation; Z79.01 Long term (current) use of anticoagulants; I10 Essential (primary) hypertension; E78.5 Hyperlipidemia, unspecified; Z95.2 Presence of prosthetic heart valve; Z95.0 Presence of cardiac pacemaker; K21.9 Gastro-esophageal reflux disease without esophagitis; Z79.899 Other long term (current) drug therapy
CPT/HCPCS: 82365; 74018; 52356; C2625; C1769; J2250; J1100; J0690; J2405; J3010; J0330; J2704

== ENCOUNTER 2020-10-23 13:45 | Day surgery (SDC) | payer OTHER ==
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
[2020-10-21 15:18] VITALS: BMI 27.1
[~2020-10-23 13:45] MED LIST changes: -DEXAMETHASONE SOD PHOSPHATE 10 MG/ML 1 ML VIAL IV ONE; +DEXAMETHASONE SOD PHOSPHATE 4 MG/ML 1 ML VIAL IV ONE; +ONDANSETRON 4 MG/2 ML VIAL IVP ONE
--- NOTE | 2020-10-23 14:08 | XR ---
EXAMINATION TYPE: XR KUB DATE OF EXAM: 10/23/2020 COMPARISON: 10/03/2020 INDICATION: Kidney stone TECHNIQUE: Single view abdomen supine view FINDINGS: Nonspecific bowel gas is present. Psoas margins are normal. Organomegaly is not evident. There is a left ureteral stent present Irregular high density areas are in the inferior pole left kidney can be renal stones. These measure 1.6 x 1.2 cm in length. IMPRESSION: 1. Left-sided renal calcification
[2020-10-23] MEDS: LACTATED RINGERS 1,000 ML IV SCH ×2 (14:40→15:44)
[2020-10-23] MEDS ORDERED: PROPOFOL 10 MG/ML 20 ML VIAL IV ONE (18:10)
[2020-10-23] MEDS ORDERED: fentaNYL (PF) 50 MCG/ML 2 ML AMP ONE (18:10)
[2020-10-23] MEDS ORDERED: diphenhydrAMINE 50 MG/ML 1 ML VIAL ONE (18:10)
[2020-10-23] MEDS ORDERED: LIDOCAINE 1% INJ 10MG/ML (20 ML MDV) ONE (18:10)
[2020-10-23] MEDS ORDERED: SUCCINYLCHOLINE CHLORIDE 100 MG/5 ML SYR IV ONE (18:10)
[2020-10-23] MEDS ORDERED: MIDAZOLAM 2 MG/2 ML VIAL ONE (18:10)
[2020-10-23] MEDS ORDERED: LACTATED RINGERS 1,000 ML IV ONE (18:30)
--- NOTE | 2020-10-23 19:36 | P.OP ---
Date of Procedure: 10/23/20 Preoperative Diagnosis: Left renal calculi Postoperative Diagnosis: Same Procedure(s) Performed: Cystoscopy, left ureteral stent removal, left ureteroscopy with Holmium laser lithotripsy Anesthesia: MARINOA Surgeon: Adolph Sharma Estimated Blood Loss (ml): 0 IV fluids (ml): 450 Pathology: none sent Condition: stable Disposition: PACU Indications for Procedure: The patient is a 75-year-old white male diagnosed with prostate cancer in 2011. His most recent PSA level was 4.0, and he is being managed with watchful waiting. He takes Eliquis for atrial fibrillation and has experienced gross hematuria. Cystoscopy in 2018 showed no intravesical pathology. He has an atrophic left kidney with 2-3 large lower pole calculi. On 10/02/2020, he underwent left ureteroscopy with laser lithotripsy. The calculi were fragmented significantly, though the procedure could not be completed due to inadequate visualization. The calculi were composed of calcium oxalate monohydrate. Operative Findings: Several left lower pole renal calculi, fragmented completely. Description of Procedure: The patient was taken to the operating room and placed in the dorsolithotomy position, with legs supported in Melvin stirrups. The external genitalia was prepped and draped sterilely. The 30 lens was used to introduce the 21-Lao Virk cystoscopic sheath through the urethra and into the bladder under direct v ision. The prostatic urethra showed evidence of lateral lobe enlargement, visually occlusive. The bladder was examined in its entirety. Several old clots were removed. Grasping forceps were used to grasp the distal end of the left ureteral stent, which was withdrawn along with the cystoscope. A 0.035 inch Glidewire was passed through the stent and up to the left renal pelvis. The stent was removed, and the Virk [email or web address] flexible ureteroscope was passed over the wire, up to the left renal pelvis. Each calyx was examined. An intact calculus was identified within a mid pole calyx. Several partially fragmented calculi were seen within a lower pole calyces. No other calculi were seen. The 272 micron Holmium laser probe was passed through the ureteroscope, and lithotripsy was performed. All calculi were fragmented until there were no residual calculus fragments exceeding 1 mm in size. The ureteroscope was slowly withdrawn under direct vision. There was no evidence of ureteral trauma, and no calculi were seen within the ureter. After removing the ureteroscope, the procedure was terminated.. The patient tolerated the procedure well and was taken to the recovery room in stable condition.
[2020-10-23 19:53] VITALS: TEMP 97.2
[2020-10-23 19:57] VITALS: RESP 16
[2020-10-23 20:12] VITALS: BP 179/98; PULSE 67
--- NOTE | 2020-10-24 08:14 | FL ---
EXAMINATION TYPE: FL guidance operating room DATE OF EXAM: 10/23/2020 FLUOROSCOPY Fluoroscopy time of 16 seconds was used during urologic intervention for left renal calculus. 1 imag e/s document/s the procedure.
== END 2020-10-23 20:30 | disposition home or self-care (01) ==
LOC: OR 13:45
PROVIDERS: ATTEND Urology
DX: N20.0 Calculus of kidney (principal); I48.91 Unspecified atrial fibrillation; K21.9 Gastro-esophageal reflux disease without esophagitis; E78.5 Hyperlipidemia, unspecified; I10 Essential (primary) hypertension; Z85.46 Personal history of malignant neoplasm of prostate; Z95.2 Presence of prosthetic heart valve; Z95.0 Presence of cardiac pacemaker; Z98.42 Cataract extraction status, left eye; Z98.41 Cataract extraction status, right eye; N26.1 Atrophy of kidney (terminal); Z87.891 Personal history of nicotine dependence; Z80.8 Family history of malignant neoplasm of other organs or systems; Z79.01 Long term (current) use of anticoagulants; Z79.899 Other long term (current) drug therapy
CPT/HCPCS: 74018; 52353; C1769; J2250; J1200; J1100; J0690; J2405; J2001; J3010; J0330; J2704

== ENCOUNTER → 2020-12-11 | Outpatient (CLI) | payer OTHER ==
--- NOTE | 2020-12-11 10:24 | XR ---
EXAMINATION TYPE: XR KUB DATE OF EXAM: 12/11/2020 10:07 AM CLINICAL HISTORY: Left-sided kidney stone. TECHNIQUE: Two supine KUB images of the abdomen are obtained. COMPARISON: Abdominal x-ray October 23, 2020. CT abdomen and pelvis September 05, 2019. FINDINGS: There is interval removal of double-J left ureter stent. Suboptimal study due to overlying colonic fecal material. A few small bilateral renal calculi are redemonstrated. The larger 2 calculi lower pole left kidney on prior x-ray study not clearly seen on today's study. There is partial visualization of cardiac ventricular pacemaker lead. There is [id number] multi level spurring in the spine. Mild to moderate narrowing and spurring in both hip joints redemonstrate d. Overall nonobstructive bowel gas pattern. IMPRESSION: As above.
--- NOTE | 2020-12-11 10:26 | US ---
EXAMINATION TYPE: US kidneys/renal and bladder DATE OF EXAM: 12/11/2020 COMPARISON: ct 09/05/2019 CLINICAL HISTORY: N20.0 calculus of kidney. Recent stone removal. EXAM MEASUREMENTS: Right Kidney: 13.5 x 6.5 x 7.3 cm Left Kidney: 8.7 x 5.9 x 4.8 cm Right Kidney: No hydronephrosis or masses seen Left Kidney: Atrophied, extrarenal pelvis. Bladder: wnl Bilateral Jets seen: Yes There is no evidence for hydronephrosis at this point in time. No nephrolithiasis is seen. No janette s are identified. The urinary bladder is anechoic. Bilateral ureteral jets are seen. IMPRESSION: Atrophic change of the left kidney. Otherwise unremarkable study.
== END | disposition home or self-care (01) ==
LOC: RADUSWWP 09:39
PROVIDERS: ATTEND Urology
DX: N26.1 Atrophy of kidney (terminal) (principal); N20.0 Calculus of kidney
CPT/HCPCS: 74018; 76770

== ENCOUNTER 2021-12-19 07:47 | Day surgery (SDC) | payer MEDICARE, OTHER ==
[2021-12-18 12:40] VITALS: BMI 28.5
[~2021-12-19 07:47] MED LIST changes: -DEXAMETHASONE SOD PHOSPHATE 4 MG/ML 1 ML VIAL IV ONE; -HYDROmorphone 0.5 MG/0.5 ML SYRINGE IVP PRN; -LIDOCAINE 1% (10MG/ML) FOR IV START INTRADERMA PRN; -MIDAZOLAM 2 MG/2 ML VIAL IV PRN; -ONDANSETRON 4 MG/2 ML VIAL IVP ONE; +SODIUM CHLORIDE 0.9% 1,000 ML IV SCH
[2021-12-19] MEDS ORDERED: PHENYLEPHRINE-0.9% NACL SYG 1,000 MCG/10 ML SYRINGE ONE (08:50)
[2021-12-19] MEDS ORDERED: LIDOCAINE 2% INJ 20 MG/ML (2 ML VIAL) ONE (08:50)
[2021-12-19] MEDS ORDERED: PROPOFOL 10 MG/ML 20 ML VIAL IV ONE (08:50)
[2021-12-19] MEDS ORDERED: SODIUM CHLORIDE 0.9% 500 ML 500 ML IV ONE ×3 (08:56)
--- NOTE | 2021-12-19 09:26 | P.PCN ---
Date of Procedure: 12/19/21 Description of Procedure: Indication: Evaluation of left atrial appendage Procedure Description: After explaining the procedure to the patient, it's risk and complications, blood pressure, heart rate and O2 saturation were monitored. The throat was sprayed with Cetacaine. Patient received sedation per anesthesia department. The probe was introduced into the esophagus without difficulty. Images were obtained. Following that, the probe was removed. There was no immediate complication. Findings: Left atrial size is dilated, left atrial appendage shows no thrombus, left ventricle size is mildly dilated with severe global hypokinesis, ejection fraction 20-25%. A bioprosthetic mitral valve and aortic valve were noted. Tricuspid valve and pulmonic valve appears to be normal. A wire was noted in the right ventricle. No pericardial effusion was noted. Descending thoracic aorta was normal. Contrast bubble study revealed no evidence of shunting. Spontaneous contrast was noted in the right ventricle Doppler: Pulse wave and color Doppler were obtained, mild aortic regurgitation with moderate tricuspid regurgitation. There was no shunting by color Doppler study Conclusion: 1. Dilated left atrium with spontaneous contrast 2. Severely impaired left ventricular systolic function 3. Bioprosthetic mitral and aortic valve, appears to be normal with mild aortic regurgitation 4. And moderate tricuspid regurgitation 5. A wire was noted in the right ventricle
--- NOTE | 2021-12-19 09:28 | P.PCN ---
Date of Procedure: 12/19/21 Description of Procedure: Cardioversion: Indications atrial fibrillation, flutter Procedure: after explaining the procedure to the patient has well as the risks and the complications. After obtaining sedated state her Anesthesia department, a synchronized biphasic 200 J cardioversion was performed with re storation of sinus mechanism. There was no immediate complications.
[2021-12-19] MEDS ORDERED: SODIUM CHLORIDE 0.9% 1,000 ML IV SCH (09:30)
[2021-12-19] MEDS ORDERED: LACTATED RINGERS 1,000 ML IV ONE ×2 (09:40)
[2021-12-19 09:46] VITALS: RESP 18; TEMP 98
[2021-12-19 11:01] VITALS: BP 104/63; PULSE 67
[2021-12-19] MEDS ORDERED: ATORVASTATIN 40 MG TAB PO SCH (21:00)
[2021-12-19] MEDS ORDERED: carvediloL 6.25 MG TAB PO SCH (21:00)
[2021-12-19] MEDS ORDERED: AMIODARONE 200 MG TAB PO SCH (21:00)
[2021-12-19] MEDS ORDERED: hydrALAZINE HCL 50 MG TAB PO SCH (21:00)
[2021-12-19] MEDS ORDERED: APIXABAN 5 MG TAB PO SCH (21:00)
[2021-12-20] MEDS ORDERED: NON FORMULARY DRUG (Losartan Potassium [Cozaar] 100 MG Tablet) PO SCH (09:00)
[2021-12-20] MEDS ORDERED: IPRATROPIUM BROMIDE NASAL SCH (09:00)
== END 2021-12-19 11:12 | disposition home or self-care (01) ==
LOC: CATHCVL 07:47
PROVIDERS: ATTEND Internal Medicine Interventional Cardiology
DX: I48.92 Unspecified atrial flutter (principal); I35.1 Nonrheumatic aortic (valve) insufficiency; I07.1 Rheumatic tricuspid insufficiency; I48.0 Paroxysmal atrial fibrillation; I25.10 Atherosclerotic heart disease of native coronary artery without angina pectoris; Z20.822 Contact with and (suspected) exposure to COVID-19; E78.5 Hyperlipidemia, unspecified; I10 Essential (primary) hypertension; Z79.01 Long term (current) use of anticoagulants; Z79.899 Other long term (current) drug therapy; K21.9 Gastro-esophageal reflux disease without esophagitis; C61 Malignant neoplasm of prostate; Z95.2 Presence of prosthetic heart valve; Z87.891 Personal history of nicotine dependence; Z80.8 Family history of malignant neoplasm of other organs or systems
CPT/HCPCS: 93312; 93320; 93325; 92960; 87635; J2370; J2704; J2001

== ENCOUNTER → 2022-04-14 | Outpatient (CLI) | payer MEDICARE ==
--- NOTE | 2022-04-14 13:51 | CT ---
EXAMINATION TYPE: CT lumbar spine wo con DATE OF EXAM: 04/14/2022 1:26 PM COMPARISON: HISTORY: Low back pain, RT side sciatic pain. CT DLP: 900 mGycm Automated exposure control for dose reduction was used. Unenhanced CT of the lumbar spine was performed. Bone and soft tissue window settings are submitted as well as coronal and sagittal reconstructions. L1-L2: Normal disc space height. No disc herniation protrusion or central stenosis. No facet joint arthropathy. No evidence for foraminal encroachment. L2-L3: Normal disc space height. No disc herniation protrusion or central stenosis. No facet joint arthropathy. No evidence for foraminal encroachment. L3-L4: Normal disc space height. No disc herniation protrusion or central stenosis. No facet joint arthropathy. No evidence for foraminal encroachment. L4-L5: Moderate degenerative disc space narrowing. Moderate posterior disc bulge with hypertrophy of the ligamentum flavum as well as facet joint arthropathy resulting in [id number] central stenos is. There is also grade 1 anterolisthesis of L4 and L5 measuring 3 mm. L5-S1: Normal disc space height. No disc herniation protrusion or central stenosis. No facet joint arthropathy. No evidence for foraminal encroachment. IMPRESSION: Spinal stenosis at L4-5 as discussed
== END | disposition home or self-care (01) ==
LOC: RADCTMAIN 12:44
PROVIDERS: ATTEND Physical Medicine & Rehabilitation
DX: M47.817 Spondylosis without myelopathy or radiculopathy, lumbosacral region (principal); M51.36 Other intervertebral disc degeneration, lumbar region; M51.26 Other intervertebral disc displacement, lumbar region; M48.061 Spinal stenosis, lumbar region without neurogenic claudication; M43.16 Spondylolisthesis, lumbar region
CPT/HCPCS: 72131

== ENCOUNTER 2022-07-14 08:06 | Day surgery (SDC) | payer MEDICARE ==
[2022-07-09 11:22] VITALS: BMI 28.5
[~2022-07-14 08:06] MED LIST changes: +LACTATED RINGERS 1,000 ML IV SCH; -SODIUM CHLORIDE 0.9% 1,000 ML IV SCH
[2022-07-14 08:31] VITALS: RESP 16; TEMP 97.5
[2022-07-14] MEDS ORDERED: PROPOFOL 10 MG/ML 20 ML VIAL IV ONE (09:10)
--- NOTE | 2022-07-14 09:26 | P.PCN ---
Date of Procedure: 07/14/22 Procedure(s) Performed: BRIEF HISTORY: Patient is a 76-year-old pleasant white male scheduled for an elective colonoscopy as a part of evaluation of prior history of colon polyps. Last colonoscopy was 5 years ago. PROCEDURE PERFORMED: Colonoscopy. PREOPERATIVE DIAGNOSIS: History of colon polyps. IV sedation per Anesthesia. PROCEDURE: After informed consent was obtained, the patient, was brought into the endoscopy unit. IV sedation was administered by Anesthesia under continuous monitoring. Digital rectal examination was normal. Initially the Olympus CF-160 flexible video colonoscope was then inserted in the rectum, gradually advanced into the cecum without any difficulty. Careful examination was performed as the scope was gradually being withdrawn. Ileocecal valve and the appendiceal orifice were visualized and appeared normal. Prep was excellent. Mucosa of the cecum, ascending colon, transverse colon, descending colon, sigmoid colon, and rectum appeared normal. At her sigmoid diverticulosis seen. Retroflexion was performed in the rectum and small internal hemorrhoids were seen. The patient tolerated the procedure well. IMPRESSION: Normal-appearing colon from rectum to cecum no evidence of colorectal neoplasia Scattered sigmoid diverticulosis and small internal hemorrhoids . RECOMMENDATIONS: Findings of this examination were discussed with the patient as his family. He was advised to be a high-fiber diet and take fiber supplements on a regular basis..
[2022-07-14 09:51] VITALS: BP 135/75; PULSE 62
== END 2022-07-14 10:10 | disposition home or self-care (01) ==
LOC: ORWHC2ENDO 08:06
PROVIDERS: ATTEND Internal Medicine Gastroenterology
DX: Z12.11 Encounter for screening for malignant neoplasm of colon (principal); K57.30 Diverticulosis of large intestine without perforation or abscess without bleeding; K64.8 Other hemorrhoids; Z86.010 Personal history of colon polyps; I10 Essential (primary) hypertension; Z95.0 Presence of cardiac pacemaker; Z95.2 Presence of prosthetic heart valve; Z87.442 Personal history of urinary calculi; K21.9 Gastro-esophageal reflux disease without esophagitis; Z79.01 Long term (current) use of anticoagulants; Z79.899 Other long term (current) drug therapy
CPT/HCPCS: G0121; J2704; 45378

== ENCOUNTER 2022-08-12 11:33 | Emergency (ER) | payer MEDICARE ==
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
--- NOTE | 2022-08-12 12:45 | XR ---
EXAMINATION TYPE: XR chest 2V DATE OF EXAM: 08/12/2022 COMPARISON: NONE HISTORY: Cough TECHNIQUE: Frontal and lateral views of the chest are obtained. FINDINGS: There are multiple median sternotomy wires and a left-sided dual-lead pacemaker. The heart size is normal. The cardiomediastinal silhouette and pulmonary vasculature are within normal limits. There is no focal consolidation, significant pleural effusion, or pneumothorax IMPRESSION: No acute cardiopulmonary process.
[2022-08-12 14:05] LABS: Basophils % (A) 0 %; Eosinophils % (A) 0 %; HCT 44.8 % (39.0-53.0); HGB 15.5 gm/dL (13.0-17.5); Lymphocytes # (A) 0.5 k/uL (1.0-4.8); Lymphocytes % (A) 5 %; MCH 33.6 pg (25.0-35.0); MCHC 34.6 g/dL (31.0-37.0); MCV 97.1 fL (80.0-100.0); Mean Platelet Volume 7.7; Monocytes # (A) 0.4 k/uL (0-1.0); Monocytes % (A) 3 %; Neutrophils # (A) 10.5 k/uL (1.3-7.7); Neutrophils % (A) 91 %; Platelet Count 232 k/uL (150-450); RBC 4.62 m/uL (4.30-5.90); RDW 12.8 % (11.5-15.5); WBC 11.5 k/uL (3.8-10.6)
[2022-08-12 14:18] LABS: Albumin 3.9 g/dL (3.5-5.0); Calcium 9.4 mg/dL (8.4-10.2); Potassium 4.4 mmol/L (3.5-5.1); Total Bilirubin 0.6 mg/dL (0.2-1.3); Total Protein 6.5 g/dL (6.3-8.2)
[2022-08-12 15:23] VITALS: BP 172/92; PULSE 64; RESP 18; TEMP 97.5
== END 2022-08-12 15:23 | disposition home or self-care (01) ==
LOC: EC 11:33
DX: J40 Bronchitis, not specified as acute or chronic (principal); I48.91 Unspecified atrial fibrillation; E78.5 Hyperlipidemia, unspecified; I10 Essential (primary) hypertension; Z87.891 Personal history of nicotine dependence; Z79.01 Long term (current) use of anticoagulants; Z79.899 Other long term (current) drug therapy; Z20.822 Contact with and (suspected) exposure to COVID-19
CPT/HCPCS: 36415; 71046; 80053; 85025; 85379; 87636; 93005; 99285

== ENCOUNTER → 2024-02-23 | Outpatient (CLI) | payer MEDICARE ==
--- NOTE | 2024-02-23 12:34 | XR ---
EXAMINATION TYPE: XR KUB DATE OF EXAM: 02/23/2024 COMPARISON: KUB radiograph 12/11/2020, CT lumbar spine 04/14/2022, CT abdomen and pelvis 09/05/2019 HISTORY: Calculus of kidney TECHNIQUE: Single supine KUB image of the abdomen is obtained FINDINGS: Small bowel demonstrates no evidence for dilatation or air fluid levels. Gas and fecal material is seen in non-distended colon. No convincing evidence for pneumoperitoneum. Left renal 1.2 cm calcification. Right renal 0.5 cm calcification. 1 cm calcification within the left pelvis with additional smaller left pelvic phleboliths. The lung bases are clear. Cardiomegaly. Median sternotomy wires. Cardiac pacemaking leads. The osseous structures are intact. Stable 1.1 cm sclerotic focus within the right proximal femoral ne ck representing a benign bone island. IMPRESSION: Bilateral renal calculi with a 1 cm left pelvic calcification which may represent a bladder or prosta te calcification versus pelvic phlebolith. Consider further evaluation with CT abdomen and pelvis. [facility], , 02/23/2024 12:32 PM
== END | disposition home or self-care (01) ==
LOC: RADXRMAIN 12:11
PROVIDERS: ATTEND Urology
DX: N20.0 Calculus of kidney (principal)
CPT/HCPCS: 74018

== ENCOUNTER 2024-03-21 09:31 | Day surgery (SDC) | payer MEDICARE ==
[~2024-03-21 09:31] MED LIST changes: -LACTATED RINGERS 1,000 ML IV SCH; +SODIUM CHLORIDE 0.9% 1,000 ML IV SCH
[2024-03-21] MEDS: IV FLUID CONTINUATION 1,000 ML IV ONE (09:41)
[2024-03-21 09:53] VITALS: BP 168/81; PULSE 69; RESP 16; TEMP 97.7
[2024-03-21] MEDS: IOPAMIDOL-370 100ML BTL INJ ONE (10:29)
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
--- NOTE | 2024-03-21 11:17 | P.EPPROC ---
- EP Procedure Note Electrophysiology Procedure Note: Diagnosis Dual-chamber pacemaker, at [facility] since December, patient complaining of shortness of breath with exertion Reduced LV systolic function ejection fraction 37% valvular heart disease coronary artery bypass grafting Cinefluoroscopy of the leads Lead cinefluoroscopy was performed atrial lead in the right atrial appendage. Lead appeared somewhat pulled back RV lead and RV apex with significant loss of he will likely chronic These leads were implanted in 2014 in [place] Left upper extremity venogram 10 cc IV dye injected into the left arm. Occluded segment of the innominate vein for about at least 3 cm with a large bridging collateral Plan Detailed discussion with the patient. This was discussed with Dr. Bynum At this time the patient is at [facility] since December and I will perform a dual- chamber pacemaker change. I will attempt to pass an angioplasty wire across the segment to see if it passes through. If it does then venoplasty to be performed and at least an LV/LB lead will be implanted with a biventricular pacemaker. However the chances of successful crossing of this occluded segment are very low. If the patient's symptoms do not improve with dual-chamber pacing he will be considered for laser lead extraction and implantation of a biventricular device with an ICD in the future Continue heart failure medications for now
== END 2024-03-21 11:10 | disposition home or self-care (01) ==
LOC: CATHEP 09:31
PROVIDERS: ATTEND Internal Medicine Clinical Cardiac Electrophysiology
DX: I25.10 Atherosclerotic heart disease of native coronary artery without angina pectoris (principal); I11.0 Hypertensive heart disease with heart failure; I50.9 Heart failure, unspecified; I48.91 Unspecified atrial fibrillation; E78.5 Hyperlipidemia, unspecified; K21.9 Gastro-esophageal reflux disease without esophagitis; I42.8 Other cardiomyopathies; Z85.46 Personal history of malignant neoplasm of prostate; Z95.3 Presence of xenogenic heart valve; Z87.891 Personal history of nicotine dependence; Z95.0 Presence of cardiac pacemaker; Z95.1 Presence of aortocoronary bypass graft; Z95.2 Presence of prosthetic heart valve; Z98.890 Other specified postprocedural states; Z79.01 Long term (current) use of anticoagulants; Z79.899 Other long term (current) drug therapy; Z87.442 Personal history of urinary calculi
CPT/HCPCS: 36005; 75820; Q9967

== ENCOUNTER → 2024-10-02 | Outpatient (CLI) | payer MEDICARE ==
[2024-10-02 18:46] LABS: Basophils # (A) 0.02 X 10*3/uL (0.00-0.10); Basophils % (A) 0.3 %; Eosinophils # (A) 0.16 X 10*3/uL (0.04-0.35); Eosinophils % (A) 2.6 %; HCT 45.1 % (39.6-50.0); HGB 14.5 g/dL (13.0-17.0); Lymphocytes # (A) 0.83 X 10*3/uL (0.90-5.00); Lymphocytes % (A) 13.6 %; MCH 31.2 pg (27.0-32.0); MCHC 32.2 g/dL (32.0-37.0); Mean Platelet Volume 10.4 FL (9.5-12.2); Monocytes # (A) 0.41 X 10*3/uL (0.20-1.00); Monocytes % (A) 6.7 %; NRBC Per 100 WBC 0 X 10*3/uL (0.00-0.01); Neutrophils # (A) 4.65 X 10*3/uL (1.80-7.70); Neutrophils % (A) 76.5 %; Platelet Count 173 X 10*3/uL (140-440); RBC 4.65 X 10*6/uL (4.40-5.60); RDW 12.9 % (11.5-14.5); WBC 6.09 X 10*3/uL (4.50-10.00)
[2024-10-02 19:25] LABS: BUN/Creat Ratio 14.07 Ratio (12.00-20.00); Blood Urea Nitrogen 21.1 mg/dL (9.0-27.0); Glucose 110 mg/dL (70-110)
[2024-10-02 19:26] LABS: Calcium 9.4 mg/dL (8.7-10.3); Carbon Dioxide 25.8 mmol/L (21.6-31.8); Chloride 104 mmol/L (96-109); Potassium 4.5 mmol/L (3.5-5.5); Sodium 141 mmol/L (135-145)
== END | disposition home or self-care (01) ==
LOC: LABPAT 11:52
PROVIDERS: ATTEND Urology
DX: Z01.818 Encounter for other preprocedural examination (principal); N21.0 Calculus in bladder; N20.0 Calculus of kidney
CPT/HCPCS: 36415; 80048; 85025

== ENCOUNTER 2024-10-19 05:45 | Day surgery (SDC) | payer MEDICARE ==
[2024-10-17 09:17] VITALS: BMI 29.0
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
[2024-10-19] MEDS ORDERED: LIDOCAINE 1% (10MG/ML) FOR IV START INTRADERMA PRN (06:37)
[2024-10-19] MEDS ORDERED: MIDAZOLAM 2 MG/2 ML VIAL IV PRN (07:00)
[2024-10-19] MEDS ORDERED: fentaNYL (PF) 50 MCG/ML 2 ML AMP IVP PRN (07:00)
[2024-10-19] MEDS ORDERED: HYDROmorphone 0.5 MG/0.5 ML SYRINGE IVP PRN (07:00)
[2024-10-19] MEDS: ONDANSETRON 4 MG/2 ML VIAL IVP ONE (07:01)
[2024-10-19] MEDS: DEXAMETHASONE SOD PHOSPHATE 4 MG/ML 1 ML VIAL IV ONE (07:01)
[2024-10-19] MEDS: LACTATED RINGERS 1,000 ML IV SCH (07:02)
[2024-10-19] MEDS: IV FLUID CONTINUATION 1,000 ML IV ONE (07:04)
[2024-10-19] MEDS ORDERED: ePHEDrine 50 MG/ML 1 ML VIAL ONE (07:28)
[2024-10-19] MEDS ORDERED: PROPOFOL 10 MG/ML 20 ML VIAL IV ONE (07:28)
[2024-10-19] MEDS ORDERED: LIDOCAINE 1% INJ 10MG/ML (20 ML MDV) ONE (07:28)
[2024-10-19] MEDS ORDERED: MIDAZOLAM 2 MG/2 ML VIAL ONE (07:28)
[2024-10-19] MEDS ORDERED: HYDROmorphone (PF) 1 MG/ML ONE (07:28)
[2024-10-19] MEDS ORDERED: fentaNYL (PF) 50 MCG/ML 2 ML AMP ONE (07:28)
[2024-10-19] MEDS ORDERED: SUCCINYLCHOLINE CHLORIDE 200 MG/10 ML VIAL IV ONE (07:28)
--- NOTE | 2024-10-19 07:34 | XR ---
EXAMINATION TYPE: XR KUB DATE OF EXAM: 10/19/2024 6:18 AM COMPARISON: 02/23/2024 CLINICAL INDICATION: Male, 79 years old with history of Bilateral Renal Calculi; PHH, pain, preop lef t kidney stoner TECHNIQUE: One radiographic view of the abdomen was obtained. FINDINGS: Median sternotomy wires. Prosthetic cardiac valve. Right atrial and right ventricular pacer leads. Lung bases are clear. At least 3 left midabdominal calcifications measuring up to 1.4 cm. Pelvic phleboliths. Redemonstrated 1.2 cm sclerotic bone island right femoral neck. Nonobstructive wale wel gas pattern. IMPRESSION: At least 3 left-sided renal stones measuring up to 1.4 cm. [facility], , 10/19/2024 7:32 AM
[2024-10-19 09:54] VITALS: TEMP 97.3
--- NOTE | 2024-10-19 10:02 | FL ---
EXAMINATION TYPE: FL guidance operating room DATE OF EXAM: 10/19/2024 FLUOROSCOPY 30.1 SEC FL [id number] DAP LEIGHANN CYSTO LITHO 7 images are submitted. [facility], Workstation: [email or web address], 10/19/2024 10:00 AM
--- NOTE | 2024-10-19 10:12 | P.OP ---
Date of Procedure: 10/19/24 Preoperative Diagnosis: Bilateral renal calculi, bladder calculus Postoperative Diagnosis: Same Procedure(s) Performed: Cystoscopy with cystolithotripsy, bilateral ureteroscopy with Holmium laser lithotripsy, bilateral ureteral stent insertion Anesthesia: MARINOA Surgeon: Adolph Sharma Estimated Blood Loss (ml): 20 IV fluids (ml): 800 Pathology: none sent Condition: stable Disposition: PACU Indications for Procedure: The patient is an 79-year-old white male with a history of prostate cancer diagnosed in 2011. This is being managed via watchful waiting. He has experienced right flank pain. KUB x-ray shows a 1 cm left pelvic calcification which may represent a bladder calculus, a 1.2 cm left renal pelvic calculus, and a 5 mm right renal calculus. He has elected to go undergo endoscopic removal of all calculi. He does report obstructive voiding symptoms but has been verified to be emptying his bladder completely. Operative Findings: 1) 11 mm bladder calculus 2) 6 mm right renal calculus 3) Several left renal calculi measuring up to 14 mm Description of Procedure: The patient was taken to the operating room and placed in the dorsolithotomy position, with legs supported in Melvin stirrups. The external genitalia was prepped and draped sterilely. The 30 lens was used to introduce the 21-Grenadian Virk cystoscopic sheath through the urethra and into the bladder under direct vision. The prostatic urethra showed evidence of significant lateral lobe enlargement. The bladder was examined in its entirety. Both ureteral orifices were normal anatomic location and configuration. No tumors were seen. The bladder contained a calculus measuring approximately 11 mm in size. A 0.038 inch Glidewire was passed through the cystoscope. The left ureteral orifice was cannulated, and the Glidewire was advanced up to the renal pelvis. The cystoscope was removed, and an 11/13-Grenadian ureteral access catheter was passed over the wire, up to the proximal ureter. The Virk Bumprra flexible ure teroscope was then passed through the ureteral access catheter sheath, up to the renal pelvis. Each calyx was examined. 3 calculi were seen within midpole and lower pole calyces. The largest measured approximately 14 mm in size. The 272 micron Holmium laser probe was passed through the ureteroscope, and lithotripsy was performed. The outer shell of each calculus was soft, almost resembling an organized hematoma. The central portion of each calculus was somewhat more dense. All calculi were fragmented until there were no residual calculus fragments exceeding 1 mm in size, and many of these tiny fragments were removed via aspiration. Pullout ureteroscopy showed no evidence of ureteral trauma. The Glidewire was passed through the ureteroscope, and after removing the ureteroscope the Glidewire was backloaded into the cystoscope, which was passed into the bladder. A 28 cm, 4.8 Grenadian double-J ureteral stent was placed over the wire. Proper stent positioning was verified fluoroscopically and endoscopically. A 0.038 inch Glidewire was passed through the cystoscope. The right ureteral orifice was cannulated, and the Glidewire was advanced up to the renal pelvis. The cystoscope was removed, and an 11/13-Grenadian ureteral access catheter was passed over the wire, up to the proximal ureter. The Virk [employer] flexible ureteroscope was then passed through the ureteral access catheter sheath, up to the renal pelvis. Each calyx was examined. A single calculus was identified within a midpole calyx, measuring approximately 6 mm in size. No additional calculi were seen. The 272 micron Holmium laser probe was passed through the ureteroscope, and lithotripsy was performed. This calculus was a more typical calculus, likely composed of calcium oxalate monohydrate. Dusting was performed and the parameter to decrease the size of the calculus, and the main portion of the calculus was then removed using a 1.9 Grenadian 0 tip nitinol basket. Ureteroscopy was repeated, and no additional calculi were seen. No residual calculus fragments were visible. Pullout ureteroscopy showed no evidence of ureteral trauma. The Glidewire was passed through the ureteroscope, and after removing the ureteroscope the Glidewire was backloaded into the cystoscope, which was passed into the bladder. A 28 cm, 4.8 Grenadian double-J ureteral stent was placed over the wire. Proper stent positioning was verified fluoroscopically and endoscopically. Attention was then paid to the bladder calculus. The holmium laser probe was passed through a 4 Grenadian open-ended catheter, and the bladder calculus was fragmented. All calculus fragments were removed. There was no active bleeding, and no evidence of bladder trauma. The bladder was emptied and the cystoscope removed. The patient tolerated the procedure well and was taken to the recovery room in stable condition. KALEB MOORE Report: Procedure Acuity: Elective Stone Size and Location: See operative findings Ureteral Dilation: No Ureteral Access Sheath Used: Yes Stone Sent for Analysis: Yes All Stones/Fragments Were Removed with a Basket: No Complications: No Preoperative Antibiotics Given: Yes Stent Placed: Yes If Stent Placed, Was String Left Attached: No If Stent Placed, When is it to be Removed: 1 week Discharge Medications: Tamsulosin
[2024-10-19 10:51] VITALS: PULSE 60; RESP 18
[2024-10-19 11:06] VITALS: BP 153/84
== END 2024-10-19 11:36 | disposition home or self-care (01) ==
LOC: OR 05:45
PROVIDERS: ATTEND Urology
DX: N20.0 Calculus of kidney (principal); N21.0 Calculus in bladder; Z85.46 Personal history of malignant neoplasm of prostate; I48.91 Unspecified atrial fibrillation; E78.5 Hyperlipidemia, unspecified; I10 Essential (primary) hypertension; Z87.891 Personal history of nicotine dependence; Z79.01 Long term (current) use of anticoagulants; Z87.442 Personal history of urinary calculi; Z95.0 Presence of cardiac pacemaker; Z95.2 Presence of prosthetic heart valve
CPT/HCPCS: 82365; 74018; 52356; C2625; C1769; C1758; J2250; J0330; J1100; J0690; J2405; J2003; J3010; J1171; J2704

== ENCOUNTER → 2024-10-25 | Outpatient (CLI) | payer MEDICARE ==
--- NOTE | 2024-10-25 12:43 | XR ---
EXAMINATION TYPE: XR KUB DATE OF EXAM: 10/25/2024 COMPARISON: NONE HISTORY: Pain TECHNIQUE: Single supine KUB image of the abdomen is obtained FINDINGS: Small bowel demonstrates no evidence for dilatation or air fluid levels. Gas and fecal material is seen in non-distended colon. No convincing evidence for pneumoperitoneum. Right ureteral stent identified. No ureteral calculus identified. No definitive renal calculi however there is overlying bowel gas limiting evaluation. Left-sided pelvic phlebolith. The lung bases are clear. Partial visualization of cardiac pacemaking lead. The osseous structures are intact. Right femoral neck stable sclerotic focus likely representing a wale ne island. Degenerative changes of the lower lumbar spine. IMPRESSION: Right ureteral stent without definitive renal or ureteral calculi however there is significant overly ing bowel gas limiting evaluation. [facility], , 10/25/2024 12:41 PM
== END | disposition home or self-care (01) ==
LOC: RADXRMAIN 12:08
PROVIDERS: ATTEND Urology
DX: N20.0 Calculus of kidney (principal)
CPT/HCPCS: 74018

== ENCOUNTER 2024-11-02 09:03 | Day surgery (SDC) | payer MEDICARE ==
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
[~2024-11-02 09:03] MED LIST changes: +HYDROmorphone 0.5 MG/0.5 ML SYRINGE IVP PRN; +MIDAZOLAM 2 MG/2 ML VIAL IV PRN; -SODIUM CHLORIDE 0.9% 1,000 ML IV SCH; +fentaNYL (PF) 50 MCG/ML 2 ML AMP IVP PRN
[2024-11-02 09:40] VITALS: RESP 16; TEMP 97.3
[2024-11-02] MEDS: IV FLUID CONTINUATION 1,000 ML IV ONE ×2 (09:50→12:08)
[2024-11-02] MEDS: LIDOCAINE 1% (10MG/ML) FOR IV START INTRADERMA PRN (09:50)
[2024-11-02] MEDS: LACTATED RINGERS 1,000 ML IV SCH (09:50)
[2024-11-02] MEDS: ONDANSETRON 4 MG/2 ML VIAL IVP ONE (10:03)
[2024-11-02] MEDS: DEXAMETHASONE SOD PHOSPHATE 4 MG/ML 1 ML VIAL IV ONE (10:04)
[2024-11-02] MEDS ORDERED: PROPOFOL 10 MG/ML 20 ML VIAL IV ONE (11:33)
[2024-11-02] MEDS ORDERED: LIDOCAINE 1% INJ 10MG/ML (20 ML MDV) ONE (11:33)
--- NOTE | 2024-11-02 12:03 | P.OP ---
Date of Procedure: 11/02/24 Preoperative Diagnosis: Right renal calculus Postoperative Diagnosis: Same Procedure(s) Performed: Cystoscopy, right ureteral stent removal Anesthesia: MANJEET Surgeon: Adolph Sharma Estimated Blood Loss (ml): 0 IV fluids (ml): 200 Pathology: none sent Condition: stable Disposition: PACU Indications for Procedure: The patient is an 79-year-old white male with a history of prostate cancer diagnosed in 2011. This is being managed via watchful waiting. He has experienced right flank pain. KUB x-ray showed a 1 cm left pelvic calcification which may represent a bladder calculus, a 1.2 cm left renal pelvic calculus, and a 5 mm right renal calculus. He underwent removal of these calculi in October 19, 2024. His left ureteral stent was removed in the office on October 25, 2024. However, the distal end of the right ureteral stent was not seen, and a KUB x-r ay shows that the stent has migrated proximally. He now comes for ureteroscopic removal of the stent. Operative Findings: The distal end of the right ureteral stent is visible in the bladder and was successfully removed. Description of Procedure: The patient was taken to the operating room and placed in the dorsolithotomy position, with legs supported in Melvin stirrups. The external genitalia was prepped and draped sterilely. The 30 lens was used to introduce the 22-Croatian Stortz cystoscopic sheath through the urethra and into the bladder under direct vision. The prostatic urethra showed evidence of significant lateral lobe enlargement and was visually occluded. Upon entering the bladder, the bladder was inspected and the distal end of the right ureteral stent was visualized. Grasping forceps were used to grasp the distal end of the stent, which was removed along with the cystoscope. The patient tolerated the procedure well and was taken to the recovery room in stable condition.
[2024-11-02 13:24] VITALS: BP 134/74; PULSE 64
== END 2024-11-02 13:40 | disposition home or self-care (01) ==
LOC: OR 09:03
PROVIDERS: ATTEND Urology
DX: N20.0 Calculus of kidney (principal); I48.91 Unspecified atrial fibrillation; E78.5 Hyperlipidemia, unspecified; I10 Essential (primary) hypertension; Z87.891 Personal history of nicotine dependence; Z85.46 Personal history of malignant neoplasm of prostate; Z95.0 Presence of cardiac pacemaker; Z95.2 Presence of prosthetic heart valve; Z98.890 Other specified postprocedural states; Z79.01 Long term (current) use of anticoagulants; Z79.899 Other long term (current) drug therapy
CPT/HCPCS: 52310; J1100; J0690; J2405; J2003; J2704